=== PATIENT | female | born 1955 | race Caucasian/White ===

== ENCOUNTER 2021-09-13 23:46 | Emergency (ER) | payer MEDICARE, OTHER ==
[~2021-09-13] VITALS: Ht 167.6 cm; Wt 90.0 kg
[2021-09-14 00:22] LABS: HEMATOCRIT 43.8 % (37.0-47.0); HEMOGLOBIN 14.6 g/dl (12.0-16.0); IMMATURE GRANULOCYTES 0.5 % (0.0-5.0); MEAN CELL VOLUME 85.9 fL CALC (80.0-100.0); MEAN CORPUSCULAR HGB 28.6 pG CALC (26.0-32.0); MEAN CORPUSCULAR HGB CONC 33.3 g/dL CAL (32.0-36.0); NEUT# 7.04 thou/uL (2.00-7.15); RED BLOOD COUNT 5.1 mill/uL (4.20-5.60); RED CELL DISTRI WIDTH 12.3 % (11.5-15.5)
[2021-09-14 00:52] LABS: ALKALINE PHOSPHATASE 107 u/l (38-126); BILIRUBIN, TOTAL 0.9 mg/dL (0.0-1.4); BUN 16 mg/dL (8-23); BUN/CREATININE RATIO 15 (12-20 (CALC)); CARBON DIOXIDE 24 mmol/l (22-30); CHLORIDE 100 mmol/l (95-108); GFR 56 ML/MIN (>=60 (CALC)); GFR FOR AFR.AMER. > 60 ML/MIN (>=60 (CALC)); SGOT/AST 40 u/l (9-36); SODIUM 137 mmol/l (137-146); TOTAL PROTEIN 7.1 g/dL (6.3-8.2)
[2021-09-14 00:53] LABS: ANION GAP 18 (6-22 (CALC)); POTASSIUM 5.3 mmol/l (3.5-5.1)
[2021-09-14 01:35] LABS: MYOGLOBIN 80 ng/mL (0 - 62)
[2021-09-14] MEDS ORDERED: ASPIRIN 81 LOW81 MG PO (02:20)
[2021-09-14] MEDS ORDERED: PRILOSEC20 MG/CAP PO (02:21)
[2021-09-14] MEDS ORDERED: LISINOP/HCTZ1 TA1 PO (02:21)
[2021-09-14] MEDS ORDERED: EZALLOR SPRINKL10 MG PO (02:22)
[2021-09-14] MEDS ORDERED: CITALOPRAM40 M1 PO (02:23)
[2021-09-14] MEDS ORDERED: V GO XX (02:24)
[2021-09-14] MEDS ORDERED: SUPER BIOTIN5000 MCG PO (02:25)
[2021-09-14] MEDS ORDERED: COQ10200 MG PO (02:26)
[2021-09-14] MEDS ORDERED: D3 HIGH POT5000 UNIT PO (02:28)
[2021-09-14] MEDS ORDERED: MILK THISTLE1000 MG PO (02:30)
[2021-09-14] MEDS ORDERED: [UNRECOGNIZED DRUG - OTHER] PO (02:31)
[2021-09-14] MEDS ORDERED: EYE HEALTH PO (02:31)
[2021-09-14] MEDS ORDERED: MAGNESIUM 400 M1 TAB PO (02:33)
[2021-09-14] MEDS ORDERED: GLUCOSAMINE CHO PO (02:37)
[2021-09-14] MEDS ORDERED: CALCIUM600 M1 PO (02:38)
[2021-09-14] MEDS ORDERED: VITAMI16 PO (02:39)
[2021-09-14] MEDS ORDERED: ONDANSETRON4 MG PO ×2 (02:53→03:16)
[2021-09-14 04:25] VITALS: BP 140/65
== END 2021-09-14 04:25 | disposition home or self-care (01) ==
LOC: ED 23:46
PROVIDERS: Emergency Medicine
DX: U07.1 COVID-19 (principal); E11.65 Type 2 diabetes mellitus with hyperglycemia; I10 Essential (primary) hypertension; E78.00 Pure hypercholesterolemia, unspecified; Z79.4 Long term (current) use of insulin